=== PATIENT | female | born 1975 | race African-American/Black ===

== ENCOUNTER 2017-05-11 22:51 | Inpatient (IN) | payer BC ==
[~2017-05-11] VITALS: Ht 165.1 cm; Wt 130.6 kg
--- NOTE | ~2017-05-11 | EKG ---
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1975 Requested By: Daron Tariq Order Number: [id number] MD: Daron Tariq Measurements Intervals [place] Rate: 109 P: 34 MA: 162 QRS: 22 QRSD: 77 T: 0 QT: 320 QTc: 431 Interpretive Statements Sinus tachycardia Low voltage, precordial leads Borderline T abnormalities, anterior leads Compared to ECG 05/11/2017 23:28:01 Sinus rhythm no longer present T-wave abnormality still present Electronically Signed On 05-15-2017 14:05:49 CDT by Daron Tariq [email or web address] <ELECTRONICALLY SIGNED> By: Daron Tariq MD 05/15/17 1405 1115 1115 Daron Tariq MD /EPI
--- NOTE | ~2017-05-11 | 2DMMODE ---
[facility] [address] [place] [address] 2 D/M-MODE ECHOCARDIOGRAM Name: CAROLYN ARRIAGA Room #: 459-P ADM IN M.R.#: [id number] Admission: 05/12/17 Attend Phys: Jose Alfredo Payton MD Discharge: Date of : 75 Date of Service: 05/12/17 1637 Report #: [id number] THIS REPORT FOR: //name// APPROVED REPORT Study performed: 05/12/2017 13:21:51 EXAM: Comprehensive 2D, Doppler, and color-flow Echocardiogram Patient Location: Bedside Room #: [facility] Status: routine BSA: 2.32 HR: 79 bpm BP: 111/61 mmHg Other Information Study Quality: Adequate Indications Dyspnea Pericardial Effusion 2D Dimensions LVEF(%): 60.33 (>50%) IVSd: 12.19 (7-11mm) LVOT Diam: 21.55 (18-24mm) LVDd: 45.95 mm PWd: 11.78 (7-11mm) Ascending Ao: 29.25 (22-36mm) LVDs: 31.20 (25-40mm) Aortic Root: 33.11 mm IVC: 22.00 mm Garcia's LVEF: 60.33 % Aortic Valve AoV Peak Graeme.: 1.39 m/s AO Peak Gr.: 7.72 mmHg LVOT Max P.06 mmHg LVOT Max V: 1.12 m/s DAPHNE Vmax: 2.95 cm2 Mitral Valve E/A Ratio: 1.4 MV Decel. Time: 226.58 ms MV E Max Graeme.: 0.78 m/s MV A Graeme.: 0.56 m/s MV PHT: 65.71 ms IVRT: 96.[address] [facility] [address] [place] [address] 2 D/M-MODE ECHOCARDIOGRAM Name: CAROLYN ARRIAGA Room #: 459-P [facility] IN ..#: [id number] Admission: 05/12/17 Attend Phys: Jose Alfredo Payton MD Discharge: Date of : 75 Date of Service: 05/12/17 1637 Report #: [id number] Pulmonary Valve PV Peak Graeme.: 0.96 m/s PV Peak Gr.: 3.67 mmHg Pulmonary Vein P Vein S: 0.46 m/s P Vein A: 0.23 m/s P Vein D: 0.37 m/s P Vein A Dur.: 92.3 msec P Vein S/D Ratio: 1.24 Tricuspid Valve TR Peak Graeme.: 2.32 m/s TR Peak Gr.: 21.53 mmHg PA Pressure: 32.00 mmHg Left Ventricle The left ventricle is normal size. There is normal LV segmental wall motion. Mild concentric left ventricular hypertrophy. The left ventricular systolic function is normal. The left ventricular ejection fraction is within the normal range. LVEF is 60-65%. The left ventricular diastolic function is normal. Right Ventricle The right ventricle is normal size. The right ventricular systolic function is normal. Atria The left atrium size is normal. The right atrium size is normal. Aortic Valve The aortic valve is normal in structure. No aortic regurgitation is present. There is no aortic valvular stenosis. Mitral Valve The mitral valve is normal in structure. There is no mitral valve regurgitation noted. No evidence of mitral valve stenosis. Tricuspid Valve The tricuspid valve is normal in structure. There is trace tricuspid regurgitation. Estimated PAP 32 mmHg. There is mild pulmonary hypertension. Pulmonic Valve The pulmonary valve is normal in structure. Trace pulmonic regurgitation. Great Vessels [address] [address] 2 D/M-MODE ECHOCARDIOGRAM Name: CAROLYN ARRIAGA Room #: 459-P [facility] IN M.R.#: [id number] Admission: 05/12/17 Attend Phys: Jose Alfredo Payton MD Discharge: Date of : 75 Date of Service: 05/12/17 1637 Report #: [id number] The aortic root is normal in size. IVC is dilated and collapses >50% with inspiration. Pericardium Moderate to moderatelyi large circumferential pericardial effusion. <Conclusion> The left ventricular systolic function is normal. There is normal LV segmental wall motion. LVEF is 60-65%. The aortic valve is normal in structure. No aortic regurgitation or stenosis. The mitral valve is normal in structure. No mitral valve regurgitation noted. Pulmonary artery pressure of 32mmHg Moderate to moderately large circumferential pericardial effusion. <ELECTRONICALLY SIGNED> By: Tutu Easley MD, FACC 05/12/17 [phone] 36 Tutu Easley MD, FACC /INF
--- NOTE | ~2017-05-11 | O ---
[facility] [place] [address] OPERATIVE REPORT Name: CAROLYN ARRIAGA Room #: 459-P [facility] IN M.R.#: [id number] Admission: 05/12/17 Attend Phys: Sami Damon MD Discharge: Date of : 75 Report #: [id number] THIS REPORT FOR: //name// CC: [facility] physician/PCP Sami Damon DATE OF SERVICE: 05/12/2017 PREOPERATIVE DIAGNOSIS: Pericardial effusion, symptomatic. POSTOPERATIVE DIAGNOSIS: Pericardial effusion, symptomatic. OPERATIVE PROCEDURE PERFORMED: Pericardial window, subxiphoid approach. 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 ANESTHESIA: General. OPERATIVE INDICATIONS: The patient is a 42-year-old female who has presented with symptoms of shortness of breath, dyspnea on exertion, weight gain, lower extremity edema. Her evaluation has included echocardiography showing evidence of at least moderate pericardial effusion, which is also consistent with her cardiac silhouette on chest x-ray. The patient is subsequently brought to the operating room now for pericardial window. OPERATIVE SUMMARY: The patient was brought into the operating room, placed on the OR table in supine position after anesthesia was induced via general endotracheal route. Monitoring lines had been positioned. The patient was prepped and draped in a sterile fashion with chlorhexidine. A vertical incision was made over the xiphoid process. It was dissected down. There was at least 3 inches of fat to go through and we reached the inferior aspect of the sternum, we excised the xiphoid process. We then dissected in the pericardial fat and identified the pericardium, incised it and drained approximately 500 mL of clear fluid. A small button of pericardium was excised from the pericardial sac. We then placed a 24 Malick drain into the pericardial space, bringing it out through a separate stab incision. It was placed to suction. The fascia was closed with #1 Vicryl, subQ fascia with a 2-0 Vicryl and the skin with a 3-0 Monocryl. The procedure was completed. The patient was taken to the postanesthesia care unit in a stable condition. The operative blood loss about 25-30 mL. There were no [facility] [address] [place] [address] OPERATIVE REPORT Name: CAROLYN ARRIAGA Room #: 459-P [facility] IN ..#: [id number] Admission: 05/12/17 Attend Phys: Sami Damon MD Discharge: Date of : 75 Report #: [id number] intraoperative complications noted. All sponge and needle counts were reported as correct. By: 1704 1740 /nt
--- NOTE | ~2017-05-11 | S ---
[facility] [place] [address] SURGICAL PATH RPT PROCEDURE Name: CAROLYN ARRIAGA Room #: 247-P ADM IN M.R.#: [id number] Admission: 05/12/17 Date of : 75 Discharge: Report #: [id number] Path Case #: [id number] PATHOLOGY REPORT COLLECTION DATE: 05/13/2017 RECEIVED DATE: 05/14/2017 SUBMITTING PHYS: Dr. Rudolph Salinas OTHER PHYS: Dr. Sami Payton M.D. SPECIMEN(S) RECEIVED: A.Pericardium * * * * * * * * * * * * FINAL DIAGNOSIS: Pericardium, pericardial window: - Moderate chronic inflammation along with congestion consistent with reactive changes, history of pericardial effusion. (IUV:mgr; 05/15/2017) PATHOLOGIST: Tanya Garcia M.D. REPORT ELECTRONICALLY SIGNED BY: Tanya Garcia M.D. DATE/TIME: 05/15/2017 15:02 * * * * * * * * * * * * GROSS PATHOLOGY: The specimen is received in formalin labeled "isabell Stubbs". Received is a segment of yellow-lawrence lobulated tissue measuring 1.8 x 1.3 x 1.3 cm in greatest dimensions. The surgical margin is inked. Sectioning reveals yellow-lawrence, homogenous cut surfaces throughout. The specimen is submitted entirely in cassettes A1 and A2. (CAA; 05/14/2017) CLINICAL HISTORY: Pericardial effusion INITIAL CPT CODE(S): A; 97846 Professional services performed by [facility] at [facility] [address] [place] [address] Technical services performed by [facility] at [address] [place] [id number] [facility] [address] [place] [address] SURGICAL PATH RPT PROCEDURE Name: CAROLYN ARRIAGA Room #: 247-P ADM IN M.R.#: [id number] Admission: 05/12/17 Date of : 75 Discharge: Report #: [id number] Path Case #: [id number] [place] [id number] [address] PHONE: [phone] DIRECTOR: Damian Espinoza M.D. * * * END OF REPORT * * *
--- NOTE | ~2017-05-11 | EKG ---
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 05/12/17 0749 27 27 Tutu Easley MD, [facility] /EPI
--- NOTE | ~2017-05-11 | 2DMMODE ---
[facility] [place] [address] 2 D/M-MODE ECHOCARDIOGRAM Name: CAROLYN ARRIAGA Room #: 247-P ADM IN M.R.#: [id number] Admission: 05/12/17 Attend Phys: Sami Damon MD Discharge: Date of : 75 Date of Service: 05/15/17 1213 Report #: [id number] THIS REPORT FOR: //name// APPROVED REPORT Study performed: 05/15/2017 11:30:08 EXAM: Limited 2D Echocardiogram Patient Location: ICU Room #: [facility] Status: KANDICE BSA: 2.32 HR: 110 bpm BP: 134/84 mmHg Rhythm: Tachycardia Other Information Study Quality: Poor/limited windows available. Technically limited study due to post operative dressings, limited mobility, morbid obesity. Indications Limited echo to rule out pericardial effusion. Status post pericardial window on 05/13/17. Left Ventricle The left ventricle is normal size. Mild concentric left ventricular hypertrophy. The left ventricular systolic function is normal. LVEF is 60-65%. Right Ventricle The right ventricle is normal size. The right ventricular systolic function is normal. Atria The left atrium size is normal. The right atrium size is normal. Aortic Valve The aortic valve is normal in structure. Mitral Valve The mitral valve is normal in structure. Tricuspid Valve The tricuspid valve is normal in structure. [facility] [address] [place] [address] 2 D/M-MODE ECHOCARDIOGRAM Name: CAROLYN ARRIAGA Room #: 247-P ADM IN M.R.#: [id number] Admission: 05/12/17 Attend Phys: Sami Damon MD Discharge: Date of : 75 Date of Service: 05/15/171212 Report #: [id number] Great Vessels IVC is not well visualized. Pericardium Trivial pericardial fluid noted posteriorly. <Conclusion> The left ventricle is normal size. Mild concentric left ventricular hypertrophy. The left ventricular systolic function is normal. The left atrium size is normal. The aortic valve is normal in structure. Trivial pericardial fluid noted posteriorly. <ELECTRONICALLY SIGNED> By: Keaton Gillespie MD 05/15/171212 12 12 Keaton Gillespie MD /INF
[2017-05-11 22:54] VITALS: BP 154/103
[2017-05-11] MEDS ORDERED: BUMETANIDE0.5 MG PO (23:02)
[2017-05-11] MEDS ORDERED: ZOLOFT50 MG PO (23:02)
[2017-05-11] MEDS ORDERED: BIOTIN10000 MC1 PO (23:02)
[2017-05-11 23:24] LABS: HEMATOCRIT 41.4 % (37.0-47.0); HEMOGLOBIN 13.7 gm/dL (12.0-15.0); MCH 29.9 pg (26.0-34.0); MCHC 33.1 g/dL (28.0-37.0); MCV 90.5 fL (80.0-100.0); PLATELET COUNT 208 thou/uL (150-400); RBC 4.58 mil/uL (4.20-5.00); RDW 14.6 % (10.5-14.5); WBC 5.6 thou/uL (4.0-11.0)
[2017-05-11 23:31] LABS: ANION GAP 5 mmol/L (7-16); BUN 9 mg/dL (7-18); CALCIUM 8.3 mg/dL (8.5-10.1); CHLORIDE 108 mmol/L (98-107); CO2 28 mmol/L (21-32); CREATININE 0.9 mg/dL (0.6-1.0); GLUCOSE 115 mg/dL (74-106); POTASSIUM 3.7 mmol/L (3.5-5.1); SODIUM 141 mmol/L (136-145)
[2017-05-11 23:39] LABS: TROPONIN-I < 0.04 ng/mL (<0.06)
[2017-05-11 23:51] LABS: ABSOLUTE NEUTROPHILS 2.5 thou/uL (1.4-8.2); ANISOCYTOSIS SLIGHT
[2017-05-12 01:26] VITALS: BP 112/45
[2017-05-12 06:32] VITALS: BP 112/66
[2017-05-12 07:55] VITALS: BP 111/61
[2017-05-12 09:31] LABS: ALBUMIN 2.7 g/dL (3.4-5.0); DIRECT BILIRUBIN < 0.1 mg/dL (<0.1-0.3); SGOT 19 U/L (15-37); SGPT 17 U/L (30-65); TOTAL BILIRUBIN 0.2 mg/dL (<0.1-1.0); TOTAL PROTEIN 6.3 g/dL (6.4-8.2)
[2017-05-12 15:56] LABS: APTT 27.2 Seconds (24.5-32.8); INR 1.2; PROTIME 11.4 Seconds (9.3-11.4)
[2017-05-12 16:17] VITALS: BP 137/84
[2017-05-12 19:27] VITALS: BP 135/91
[2017-05-12 21:25] LABS: URINE BILIRUBIN NEGATIVE (Negative); URINE BLOOD NEGATIVE (Negative); URINE CLARITY CLEAR; URINE COLOR YELLOW; URINE GLUCOSE-RANDOM* NEGATIVE (Negative); URINE KETONES NEGATIVE (Negative); URINE NITRITE-REFLEX NEGATIVE (Negative); URINE PROTEIN (DIPSTICK) NEGATIVE (Negative); URINE UROBILINOGEN 0.2 E.U./dl (0.2-1.0)
[2017-05-12 21:28] LABS: URINE LEUKOCYTES-REFLEX 2+ (Negative)
[2017-05-12 21:37] LABS: CASTS None Seen /LPF (None Seen); SQUAMOUS 4-10 Moderate /LPF (0-3); URINE WBC-REFLEX 0-5 Rare /HPF (0-5)
[2017-05-12 21:38] LABS: BACTERIA-REFLEX 1-9 Few /HPF (None Seen); CRYSTALS None Seen /LPF (None Seen); URINE RBC None Seen /HPF (0-2)
[2017-05-13] VITALS (10 sets, daily range): BP systolic 103–131; BP diastolic 68–95
[2017-05-14] VITALS (16 sets, daily range): BP systolic 97–124; BP diastolic 66–97
[2017-05-14 04:12] LABS: HEMATOCRIT 44.5 % (37.0-47.0); MCH 30.3 pg (26.0-34.0); MCHC 33.8 g/dL (28.0-37.0); MCV 89.6 fL (80.0-100.0); RBC 4.97 mil/uL (4.20-5.00); RDW 14.2 % (10.5-14.5); WBC 9.7 thou/uL (4.0-11.0)
[2017-05-14 04:13] LABS: CALCIUM 8.2 mg/dL (8.5-10.1); CREATININE 0.9 mg/dL (0.6-1.0); MAGNESIUM 1.8 mg/dL (1.8-2.4)
[2017-05-14 09:09] LABS: ANTI-DNA SCREEN 1 IU/mL (0-9); ANTI-RNP 0.3 AI (0.0-0.9)
[2017-05-15] VITALS (19 sets, daily range): BP systolic 105–145; BP diastolic 69–107
[2017-05-15 04:28] LABS: HEMATOCRIT 45.7 % (37.0-47.0); HEMOGLOBIN 15.2 gm/dL (12.0-15.0); MCH 30.2 pg (26.0-34.0); MCHC 33.3 g/dL (28.0-37.0); MCV 90.8 fL (80.0-100.0); PLATELET COUNT 229 thou/uL (150-400); RBC 5.03 mil/uL (4.20-5.00); RDW 14.9 % (10.5-14.5); WBC 21.4 thou/uL (4.0-11.0)
[2017-05-15 04:34] LABS: CALCIUM 8.6 mg/dL (8.5-10.1); CREATININE 1.1 mg/dL (0.6-1.0)
[2017-05-15 16:08] LABS: LARGE PLATELETS RARE
[2017-05-15 16:09] LABS: ABSOLUTE NEUTROPHILS 15.6 thou/uL (1.4-8.2)
[2017-05-16] VITALS (17 sets, daily range): BP systolic 94–138; BP diastolic 63–95
[2017-05-16 06:17] LABS: HIV ANTIBODY Non Reactive (Non Reactive)
[2017-05-16 08:10] LABS: MCH 29.8 pg (26.0-34.0); MCHC 32.9 g/dL (28.0-37.0); MCV 90.4 fL (80.0-100.0); RBC 4.2 mil/uL (4.20-5.00); RDW 14.6 % (10.5-14.5); WBC 17.9 thou/uL (4.0-11.0)
[2017-05-16 08:22] LABS: HEMOGLOBIN 12.5 gm/dL (12.0-15.0)
[2017-05-16 08:33] LABS: ALBUMIN 2.2 g/dL (3.4-5.0); CALCIUM 8.3 mg/dL (8.5-10.1); CREATININE 0.9 mg/dL (0.6-1.0); PHOSPHORUS 2.3 mg/dL (2.5-4.9); POTASSIUM 3.8 mmol/L (3.5-5.1)
[2017-05-17 04:29] VITALS: BP 102/66
[2017-05-17 07:05] LABS: HEMATOCRIT 37.6 % (37.0-47.0); HEMOGLOBIN 12.5 gm/dL (12.0-15.0); MCH 29.9 pg (26.0-34.0); MCHC 33.2 g/dL (28.0-37.0); MCV 90.1 fL (80.0-100.0); RBC 4.17 mil/uL (4.20-5.00); WBC 13.5 thou/uL (4.0-11.0)
[2017-05-17 07:17] LABS: ALBUMIN 2.5 g/dL (3.4-5.0); CALCIUM 8.7 mg/dL (8.5-10.1); CREATININE 0.9 mg/dL (0.6-1.0); POTASSIUM 3.2 mmol/L (3.5-5.1)
[2017-05-17 07:45] VITALS: BP 118/78
[2017-05-17 16:20] VITALS: BP 115/75
[2017-05-17 20:12] VITALS: BP 125/80
[2017-05-18 03:58] LABS: ALBUMIN 2.4 g/dL (3.4-5.0); CALCIUM 8.6 mg/dL (8.5-10.1); PHOSPHORUS 2.4 mg/dL (2.5-4.9)
[2017-05-18 04:11] LABS: POTASSIUM 2.9 mmol/L (3.5-5.1)
[2017-05-18 04:21] VITALS: BP 130/70
[2017-05-18 07:25] VITALS: BP 140/93
[2017-05-18 08:33] LABS: HEMATOCRIT 38.7 % (37.0-47.0); HEMOGLOBIN 12.8 gm/dL (12.0-15.0); MCH 29.9 pg (26.0-34.0); MCHC 33.1 g/dL (28.0-37.0); MCV 90.3 fL (80.0-100.0); RBC 4.29 mil/uL (4.20-5.00); RDW 14.5 % (10.5-14.5); WBC 8.5 thou/uL (4.0-11.0)
[2017-05-18 11:10] VITALS: BP 131/76
[2017-05-18] MEDS ORDERED: SENNA-TIME S T1 EACH PO (11:32)
[2017-05-18] MEDS ORDERED: HYDROCODON-ACE1 EAC7 PO (11:32)
[2017-05-18] MEDS ORDERED: COLCHICINE0.6 MG PO (11:33)
[2017-05-18 13:05] VITALS: BP 131/76
[2017-05-18 16:11] LABS: COMPLEMENT-C3 110 mg/dL (82-167); COMPLEMENT-C4 14 mg/dL (14-44)
[2017-05-18 16:11] LABS: UR AMINO LEVULINIC ACID 1.2 mg/24 hr (0.5-5.1)
== END 2017-05-18 13:47 | disposition home or self-care (01) | DRG 271 ==
LOC: ER 22:51 → EROBS 05-12 01:00 → 4W 05-12 01:00 → ICU 05-13 18:09 → 2N 05-14 11:01 → ICU 05-15 10:29 → 2N 05-16 15:50
PROVIDERS: Emergency Medicine; Hospitalist; Internal Medicine Rheumatology; Nurse Practitioner; Nurse Practitioner Acute Care; Specialist
PROC: B24BZZ4 Ultrasonography of Heart with Aorta, Transesophageal (ICD-10-PCS; principal; 2017-05-12)
PROC: 0W9D0ZZ Drainage of Pericardial Cavity, Open Approach (ICD-10-PCS; 2017-05-13)
DX: I31.3 Pericardial effusion (noninflammatory) (principal); J45.901 Unspecified asthma with (acute) exacerbation; N39.0 Urinary tract infection, site not specified; J98.11 Atelectasis; K56.7 Ileus, unspecified; I30.1 Infective pericarditis; B96.89 Other specified bacterial agents as the cause of diseases classified elsewhere; I27.20 Pulmonary hypertension, unspecified; Z86.718 Personal history of other venous thrombosis and embolism; Z82.49 Family history of ischemic heart disease and other diseases of the circulatory system; Z82.69 Family history of other diseases of the musculoskeletal system and connective tissue
CPT/HCPCS: 10045; 10078; 10081; 10204; 50010; 50101; 50386; 50455; 50497; 50662; 51301; 53358; 56525; 56526; 56528; 57092; 57093; 62110; 62900; 70005